=== PATIENT | male | born 1960 | race Caucasian/White ===

== ENCOUNTER 2021-04-29 02:06 | Inpatient (IN) | payer OTHER, MEDICAID ==
[~2021-04-29] VITALS: Ht 175.3 cm; Wt 120.2 kg
[2021-04-29] MEDS ORDERED: DEXTROSE (50%) 50ML SYRG IV ONE ×2 (02:30→02:45)
[2021-04-29] MEDS ORDERED: ACCU-CHEK COMFORT CURVE STRIP VI ONE ×2 (02:30→02:45)
[2021-04-29 02:45] LABS: Basophils # (auto) 0.1 10 ^3/uL (0-0.2); Basophils % (auto) 0.8 % (0.0-2.0); Eosinophils # (auto) 0 10 ^3/uL (0-0.8); Eosinophils % (auto) 0.4 % (0.0-7.0); Hematocrit 46.1 % (41.0-53.0); Lymphocytes # (auto) 1.5 10 ^3/uL (0.4-5.4); Lymphocytes % (auto) 13.8 % (10.0-50.0); Mean Corpuscular Hemoglobin 28.2 pg (28.0-32.0); Mean Corpuscular Hgb Conc. 32.6 g/dL (32.0-36.0); Mean Corpuscular Volume 86.4 fL (80.0-100.0); Monocytes # (auto) 0.8 10 ^3/uL (0-1.3); Monocytes % (auto) 7.5 % (0.0-12.0); Neutrophils # (auto) 8.6 10 ^3/uL (1.6-8.6); Neutrophils % (auto) 77.5 % (37.0-80.0); Nucleated Red Blood Cells % 0.1 %; Red Blood Cells 5.33 10^6/uL (4.5-5.90); Red Cell Distribution Width 15.2 % (11.8-14.3); White Blood Cell 11.2 10^3/uL (4.4-10.8)
[2021-04-29 02:51] LABS: Urine Bacteria NONE SEEN /hpf (None Seen); Urine WBC <1 /hpf (0 - 3)
[2021-04-29 02:53] LABS: Urine Blood TRACE /uL (Negative); Urine Specific Gravity 1.006 (1.001-1.035)
[2021-04-29 02:59] LABS: Albumin 3.7 g/dL (3.4-5.0); BUN/Creatinine Ratio 8.7; Calcium 9.2 mg/dL (8.5-10.1); Potassium 3.3 mmol/L (3.5-5.1)
[2021-04-29 03:10] LABS: Bilirubin, Total 0.3 mg/dL (0.2-1.0)
[2021-04-29] MEDS ORDERED: D5W/SOD CHL 0.45%/KCL 20MEQ 1,000 ML IV ONE (04:30)
[2021-04-29] MEDS ORDERED: NITROGLYCERIN 0.4 MG SL TAB SL PRN (06:30)
[2021-04-29] MEDS ORDERED: HYDROcodone-ACET 5/325MG TAB PO PRN (06:30)
[2021-04-29] MEDS ORDERED: SODIUM CHLORIDE 0.9% 1,000 ML IV SCH (06:30)
[2021-04-29] MEDS ORDERED: ONDANSETRON HCL 4 MG/2 ML VIAL IV PRN (06:30)
[2021-04-29] MEDS ORDERED: ACETAMINOPHEN 325 MG TAB PO PRN (06:30)
[2021-04-29] MEDS ORDERED: MORPHINE SULFATE INJECTION 2 MG/ML SYRG IV PRN (06:30)
[2021-04-29] MEDS ORDERED: DEXTROSE (50%) 50ML SYRG IV PRN (07:30)
[2021-04-29] MEDS ORDERED: hydrALAZINE HCL 20 MG/ML VL IV PRN (07:30)
[2021-04-29 09:30] VITALS: BP 177/90
[2021-04-29] MEDS ORDERED: LOSARTAN POTASSIUM 50 MG TAB PO SCH (10:00)
[2021-04-29] MEDS ORDERED: ENOXAPARIN SOD 40 MG/0.4 ML SYRINGE SC SCH (10:00)
[2021-04-29] MEDS ORDERED: NIFEdipine ER 30 MG TAB PO SCH (10:00)
[2021-04-29] MEDS ORDERED: INSU100I44 SC (10:49)
[2021-04-29] MEDS ORDERED: INSUINJ37 SC (10:49)
[2021-04-29] MEDS ORDERED: LOSA-39 PO (10:49)
[2021-04-29] MEDS ORDERED: InsuLIN REG 1unit/0.01ml Soln (100units/ml) SC SCH ×2 (11:30→22:00)
[2021-04-29] MEDS ORDERED: ACCU-CHEK COMFORT CURVE STRIP VI SCH (11:30)
== END 2021-04-29 11:21 | disposition left against medical advice (07) | DRG 637 ==
LOC: EDBD 02:06 → ER 02:06 → OVERFLOW 06:18
PROVIDERS: ADMIT Internal Medicine; ATTEND Internal Medicine
DX: E11.649 Type 2 diabetes mellitus with hypoglycemia without coma (principal); G93.41 Metabolic encephalopathy; I10 Essential (primary) hypertension; Z53.29 Procedure and treatment not carried out because of patient's decision for other reasons; D72.829 Elevated white blood cell count, unspecified; Z20.822 Contact with and (suspected) exposure to COVID-19; Z86.73 Personal history of transient ischemic attack (TIA), and cerebral infarction without residual deficits; Z91.14 Patient's other noncompliance with medication regimen
CPT/HCPCS: 36415; 70450; 71045; 80053; 81001; 82962; 84484; 85025; 87426; 93005; 96365; 96366; 96375; G0378

== ENCOUNTER 2021-06-17 22:23 | Inpatient (IN) | payer OTHER, MEDICAID ==
[~2021-06-17] VITALS: Ht 175.3 cm; Wt 82.0 kg
[~2021-06-17 22:23] MED LIST: INSU100I44 SC; INSUINJ37 SC; LOSA-39 PO
[2021-06-17] MEDS ORDERED: ROCURONIUM 10MG/ML 10ML VIAL IV ONE ×2 (22:34→22:45)
[2021-06-17] MEDS ORDERED: ETOMIDATE (2MG/ML) 20ML VIAL IV ONE ×2 (22:34→22:45)
[2021-06-17] MEDS: PROPOFOL 100 ML IV SCH (22:42)
[2021-06-17] MEDS ORDERED: SODIUM CHLORIDE 0.9% 1,000 ML IV ONE (22:45)
[2021-06-17] MEDS ORDERED: MIDAZOLAM HCL 5 MG/ML-1ML VIAL IV ONE (22:45)
[2021-06-17 22:55] LABS: Basophils # (auto) 0 10 ^3/uL (0-0.2); Basophils % (auto) 0.2 % (0.0-2.0); Eosinophils # (auto) 0 10 ^3/uL (0-0.8); Hematocrit 47.7 % (41.0-53.0); Hemoglobin 15.8 g/dL (13.5-17.5); Lymphocytes # (auto) 0.9 10 ^3/uL (0.4-5.4); Lymphocytes % (auto) 6.3 % (10.0-50.0); Mean Corpuscular Hemoglobin 28.3 pg (28.0-32.0); Mean Corpuscular Hgb Conc. 33.2 g/dL (32.0-36.0); Mean Corpuscular Volume 85.2 fL (80.0-100.0); Monocytes # (auto) 1.7 10 ^3/uL (0-1.3); Monocytes % (auto) 11.1 % (0.0-12.0); Neutrophils # (auto) 12.3 10 ^3/uL (1.6-8.6); Neutrophils % (auto) 82.4 % (37.0-80.0); Nucleated Red Blood Cells % 0.1 %; Red Cell Distribution Width 16.1 % (11.8-14.3); White Blood Cell 14.9 10^3/uL (4.4-10.8)
[2021-06-17] MEDS ORDERED: ACETAMINOPHEN 650 MG RECT SUPP PR ONE (23:00)
[2021-06-17 23:06] LABS: Urine Bacteria NONE SEEN /hpf (None Seen); Urine Blood 2+ /uL (Negative); Urine Hyaline Cast FEW /lpf (0 - 2); Urine Specific Gravity 1.023 (1.001-1.035); Urine WBC 1 /hpf (0 - 3)
[2021-06-17] MEDS ORDERED: PIPERACILLIN-TAZO 4.5GM 100 ML IV ONE (23:15)
[2021-06-17 23:16] LABS: Albumin 3.2 g/dL (3.4-5.0); BUN/Creatinine Ratio 18.3; Calcium 8.6 mg/dL (8.5-10.1); Potassium 4.1 mmol/L (3.5-5.1)
[2021-06-17 23:18] LABS: Bilirubin, Total 0.5 mg/dL (0.2-1.0); Total Protein 7.6 g/dL (6.4-8.2)
[2021-06-17] MEDS: VANCOMYCIN 1GM/250ML 250 ML IV ONE ×2 (23:21→23:31)
[2021-06-17] MEDS ORDERED: IOHEXOL 300 MG/ML 100ML BOTTLE IJ ONE (23:22)
[2021-06-17] MEDS ORDERED: fentaNYL Drip 2500mCg/250mlNS 250 ML IV ONE (23:44)
[2021-06-17] MEDS: fentaNYL Drip 2500mCg/250mlNS 250 ML IV SCH (23:50)
[2021-06-17] MEDS: MIDAZOLAM DRIP 50 mg/50mL 50 ML IV SCH (23:59)
[2021-06-18] VITALS (74 sets, daily range): BP systolic 94–193; BP diastolic 53–130
[2021-06-18] MEDS ORDERED: ROCURONIUM 10MG/ML 10ML VIAL IV ONE
[2021-06-18 00:25] LABS: Alcohol, Urine < 3.0 mg/dL (0-10); Amphetamine Screen, Urine POSITIVE (NEGATIVE); Barbiturate Scree,Urine NEGATIVE (NEGATIVE); Benzodiazephine Screen, Urine POSITIVE (NEGATIVE); Cannabinoid Screen, Urine NEGATIVE (NEGATIVE); Cocaine Screen, Urine NEGATIVE (NEGATIVE); Opiate Scree,Urine NEGATIVE (NEGATIVE); Phencyclidine Screen, Urine NEGATIVE (NEGATIVE)
[2021-06-18 01:18] LABS: INR 1.13 (0.9-1.15); Partial Thromboplastin Time 29.6 sec (23.6-33.0)
[2021-06-18] MEDS ORDERED: SODIUM CHLORIDE 0.9% 1,000 ML IV ONE (03:15)
[2021-06-18] MEDS ORDERED: ACETAMINOPHEN 650 MG RECT SUPP PR ONE (04:45)
[2021-06-18] MEDS ORDERED: ONDANSETRON HCL 4 MG/2 ML VIAL IV PRN (06:15)
[2021-06-18] MEDS ORDERED: ACETAMINOPHEN 325 MG TAB PO PRN (06:15)
[2021-06-18] MEDS ORDERED: NITROGLYCERIN 0.4 MG SL TAB SL PRN (06:15)
[2021-06-18] MEDS ORDERED: ALBUMIN 5% 250 ML IV ONE (06:15)
[2021-06-18] MEDS ORDERED: ALBUTEROL SULF 2.5 MG/0.5ML(0.5%) NEB SOLN NEB PRN (06:15)
[2021-06-18] MEDS ORDERED: MORPHINE SULFATE INJ 2 MG/ml SYRG IV PRN (06:15)
[2021-06-18] MEDS: SODIUM CHLORIDE 0.9% 1,000 ML IV SCH ×3 (06:33→18:50)
[2021-06-18] MEDS: ENOXAPARIN SOD 40 MG/0.4 ML SYRINGE SC SCH (09:19)
[2021-06-18] MEDS: PANTOPRAZOLE 40 MG/10 ML VIAL INJ IV SCH (09:20)
[2021-06-18] MEDS: cefTRIAXone 1GM/50ML D5W 50 ML IV SCH (09:20)
[2021-06-18] MEDS: ALBUTEROL SULF 2.5 MG/0.5ML(0.5%) NEB SOLN NEB SCH ×4 (11:07→22:15)
[2021-06-18] MEDS: InsuLIN REG 1unit/0.01ml Soln (100units/ml) SC SCH ×3 (12:00→23:55)
[2021-06-18] MEDS: ACCU-CHEK COMFORT CURVE STRIP VI SCH ×3 (12:14→23:56)
[2021-06-18] MEDS: MIDAZOLAM DRIP 50 mg/50mL 50 ML IV SCH ×2 (12:16→18:50)
[2021-06-18] MEDS: fentaNYL Drip 2500mCg/250mlNS 250 ML IV SCH ×2 (13:33→18:50)
[2021-06-18] MEDS: CLINDAMYCIN 600MG IV 50 ML IV SCH ×2 (13:38→22:21)
[2021-06-18] MEDS: IPRATROPIUM BROM 0.5 MG/2.5ML INH SOL NEB SCH ×2 (14:50→22:15)
[2021-06-18] MEDS: ACETYLCYSTEINE 20%(200MG/ML) SOL 4ML NEB SCH ×2 (14:51→22:15)
[2021-06-18] MEDS: PROPOFOL 100 ML IV SCH (22:45)
[2021-06-19] VITALS (102 sets, daily range): BP systolic 94–155; BP diastolic 54–81
[2021-06-19] MEDS: MIDAZOLAM DRIP 50 mg/50mL 50 ML IV SCH ×2 (01:50→09:15)
[2021-06-19] MEDS: ALBUTEROL SULF 2.5 MG/0.5ML(0.5%) NEB SOLN NEB SCH ×6 (02:17→22:08)
[2021-06-19 04:01] LABS: Basophils # (auto) 0.1 10 ^3/uL (0-0.2); Eosinophils # (auto) 0.2 10 ^3/uL (0-0.8); Eosinophils % (auto) 1.2 % (0.0-7.0); Hematocrit 40.4 % (41.0-53.0); Hemoglobin 13.1 g/dL (13.5-17.5); Lymphocytes # (auto) 2.6 10 ^3/uL (0.4-5.4); Lymphocytes % (auto) 21.4 % (10.0-50.0); Mean Corpuscular Hemoglobin 29.2 pg (28.0-32.0); Mean Corpuscular Hgb Conc. 32.3 g/dL (32.0-36.0); Mean Corpuscular Volume 90.2 fL (80.0-100.0); Monocytes # (auto) 1.3 10 ^3/uL (0-1.3); Monocytes % (auto) 11.1 % (0.0-12.0); Neutrophils # (auto) 7.9 10 ^3/uL (1.6-8.6); Neutrophils % (auto) 65.3 % (37.0-80.0); Nucleated Red Blood Cells % 0.2 %; Red Blood Cells 4.48 10^6/uL (4.5-5.90); Red Cell Distribution Width 15.9 % (11.8-14.3); White Blood Cell 12.1 10^3/uL (4.4-10.8)
[2021-06-19 04:16] LABS: Albumin 2.6 g/dL (3.4-5.0); Calcium 8.1 mg/dL (8.5-10.1); Potassium 4.2 mmol/L (3.5-5.1)
[2021-06-19 04:27] LABS: Bilirubin, Total 0.4 mg/dL (0.2-1.0); Total Protein 6.2 g/dL (6.4-8.2)
[2021-06-19] MEDS: DEXTROSE (50%) 50ML SYRG IV PRN (05:59)
[2021-06-19] MEDS: InsuLIN REG 1unit/0.01ml Soln (100units/ml) SC SCH ×4 (06:00→23:54)
[2021-06-19] MEDS: CLINDAMYCIN 600MG IV 50 ML IV SCH ×3 (06:17→21:47)
[2021-06-19] MEDS: ACCU-CHEK COMFORT CURVE STRIP VI SCH ×4 (06:18→23:54)
[2021-06-19] MEDS: IPRATROPIUM BROM 0.5 MG/2.5ML INH SOL NEB SCH ×3 (08:23→22:08)
[2021-06-19] MEDS: ACETYLCYSTEINE 20%(200MG/ML) SOL 4ML NEB SCH ×3 (08:24→22:08)
[2021-06-19] MEDS: ENOXAPARIN SOD 40 MG/0.4 ML SYRINGE SC SCH (09:15)
[2021-06-19] MEDS: cefTRIAXone 1GM/50ML D5W 50 ML IV SCH (09:15)
[2021-06-19] MEDS: PANTOPRAZOLE 40 MG/10 ML VIAL INJ IV SCH (09:15)
[2021-06-19] MEDS: SODIUM CHLORIDE 0.9% 1,000 ML IV SCH (13:54)
[2021-06-19] MEDS: fentaNYL Drip 2500mCg/250mlNS 250 ML IV SCH (15:49)
[2021-06-19] MEDS: PROPOFOL 100 ML IV SCH (22:45)
[2021-06-20] VITALS (67 sets, daily range): BP systolic 113–180; BP diastolic 60–92
[2021-06-20] MEDS: ALBUTEROL SULF 2.5 MG/0.5ML(0.5%) NEB SOLN NEB SCH ×7 (01:53→22:09)
[2021-06-20] MEDS: CLINDAMYCIN 600MG IV 50 ML IV SCH ×3 (05:39→21:17)
[2021-06-20] MEDS: SODIUM CHLORIDE 0.9% 1,000 ML IV SCH ×2 (05:39→17:05)
[2021-06-20] MEDS: ACCU-CHEK COMFORT CURVE STRIP VI SCH ×4 (05:40→23:59)
[2021-06-20] MEDS: InsuLIN REG 1unit/0.01ml Soln (100units/ml) SC SCH ×3 (06:00→17:21)
[2021-06-20] MEDS: ACETYLCYSTEINE 20%(200MG/ML) SOL 4ML NEB SCH ×4 (06:34→22:09)
[2021-06-20] MEDS: IPRATROPIUM BROM 0.5 MG/2.5ML INH SOL NEB SCH ×4 (06:34→22:09)
[2021-06-20] MEDS: ENOXAPARIN SOD 40 MG/0.4 ML SYRINGE SC SCH (09:26)
[2021-06-20] MEDS: cefTRIAXone 1GM/50ML D5W 50 ML IV SCH (09:26)
[2021-06-20] MEDS: PANTOPRAZOLE 40 MG/10 ML VIAL INJ IV SCH (09:26)
[2021-06-20] MEDS: PROPOFOL 100 ML IV SCH (22:12)
[2021-06-20] MEDS: MIDAZOLAM DRIP 50 mg/50mL 50 ML IV SCH (23:45)
[2021-06-20] MEDS: fentaNYL Drip 2500mCg/250mlNS 250 ML IV SCH (23:45)
[2021-06-21] VITALS (38 sets, daily range): BP systolic 120–193; BP diastolic 64–105
[2021-06-21] MEDS: InsuLIN REG 1unit/0.01ml Soln (100units/ml) SC SCH ×4 (00:01→18:02)
[2021-06-21 04:13] LABS: Basophils # (auto) 0 10 ^3/uL (0-0.2); Basophils % (auto) 0.6 % (0.0-2.0); Eosinophils # (auto) 0.1 10 ^3/uL (0-0.8); Eosinophils % (auto) 1.1 % (0.0-7.0); Hematocrit 39.7 % (41.0-53.0); Hemoglobin 13.2 g/dL (13.5-17.5); Lymphocytes # (auto) 1.4 10 ^3/uL (0.4-5.4); Mean Corpuscular Hemoglobin 29.2 pg (28.0-32.0); Mean Corpuscular Hgb Conc. 33.2 g/dL (32.0-36.0); Mean Corpuscular Volume 87.9 fL (80.0-100.0); Monocytes # (auto) 0.7 10 ^3/uL (0-1.3); Monocytes % (auto) 8.9 % (0.0-12.0); Neutrophils % (auto) 72.4 % (37.0-80.0); Nucleated Red Blood Cells % 0.1 %; Red Blood Cells 4.51 10^6/uL (4.5-5.90); Red Cell Distribution Width 15.2 % (11.8-14.3); White Blood Cell 8.3 10^3/uL (4.4-10.8)
[2021-06-21 04:20] LABS: Calcium 8.6 mg/dL (8.5-10.1); Potassium 4.2 mmol/L (3.5-5.1)
[2021-06-21] MEDS: SODIUM CHLORIDE 0.9% 1,000 ML IV SCH ×2 (05:06→17:47)
[2021-06-21] MEDS: ACCU-CHEK COMFORT CURVE STRIP VI SCH ×3 (05:09→17:58)
[2021-06-21] MEDS: CLINDAMYCIN 600MG IV 50 ML IV SCH ×3 (05:09→21:11)
[2021-06-21] MEDS: IPRATROPIUM BROM 0.5 MG/2.5ML INH SOL NEB SCH (06:12)
[2021-06-21] MEDS: ALBUTEROL SULF 2.5 MG/0.5ML(0.5%) NEB SOLN NEB SCH (06:12)
[2021-06-21] MEDS: ACETYLCYSTEINE 20%(200MG/ML) SOL 4ML NEB SCH (06:13)
[2021-06-21] MEDS: cefTRIAXone 1GM/50ML D5W 50 ML IV SCH (09:16)
[2021-06-21] MEDS: PANTOPRAZOLE 40 MG/10 ML VIAL INJ IV SCH (10:00)
[2021-06-21] MEDS: ENOXAPARIN SOD 40 MG/0.4 ML SYRINGE SC SCH (10:01)
[2021-06-21] MEDS ORDERED: amLODIPine BESYLATE 5 MG TAB GT SCH (13:45)
[2021-06-21] MEDS: hydrALAZINE HCL 20 MG/ML VL IV PRN ×2 (14:05→21:09)
[2021-06-21] MEDS ORDERED: amLODIPine BESYLATE 5 MG TAB GT ONE (14:15)
[2021-06-21] MEDS ORDERED: LORazepam 2MG/ML-1ML VIAL IV PRN (17:45)
[2021-06-21] MEDS: PROPOFOL 100 ML IV SCH (22:36)
[2021-06-21] MEDS: fentaNYL Drip 2500mCg/250mlNS 250 ML IV SCH (23:17)
[2021-06-21] MEDS: MIDAZOLAM DRIP 50 mg/50mL 50 ML IV SCH (23:17)
[2021-06-22] VITALS (37 sets, daily range): BP systolic 115–196; BP diastolic 53–97
[2021-06-22] MEDS: ACCU-CHEK COMFORT CURVE STRIP VI SCH ×4 (00:17→18:03)
[2021-06-22] MEDS: InsuLIN REG 1unit/0.01ml Soln (100units/ml) SC SCH ×4 (00:18→18:02)
[2021-06-22 04:24] LABS: Basophils # (auto) 0.1 10 ^3/uL (0-0.2); Basophils % (auto) 0.7 % (0.0-2.0); Eosinophils # (auto) 0.1 10 ^3/uL (0-0.8); Eosinophils % (auto) 0.7 % (0.0-7.0); Hematocrit 40.6 % (41.0-53.0); Hemoglobin 13.4 g/dL (13.5-17.5); Lymphocytes # (auto) 1.4 10 ^3/uL (0.4-5.4); Lymphocytes % (auto) 18.6 % (10.0-50.0); Mean Corpuscular Hemoglobin 28.7 pg (28.0-32.0); Mean Corpuscular Volume 86.9 fL (80.0-100.0); Monocytes # (auto) 0.8 10 ^3/uL (0-1.3); Monocytes % (auto) 10.4 % (0.0-12.0); Neutrophils # (auto) 5.4 10 ^3/uL (1.6-8.6); Neutrophils % (auto) 69.6 % (37.0-80.0); Red Blood Cells 4.68 10^6/uL (4.5-5.90); Red Cell Distribution Width 15.8 % (11.8-14.3); White Blood Cell 7.7 10^3/uL (4.4-10.8)
[2021-06-22 04:40] LABS: BUN/Creatinine Ratio 30.3; Calcium 8.9 mg/dL (8.5-10.1); Potassium 3.9 mmol/L (3.5-5.1)
[2021-06-22] MEDS: SODIUM CHLORIDE 0.9% 1,000 ML IV SCH ×2 (04:47→16:09)
[2021-06-22] MEDS: CLINDAMYCIN 600MG IV 50 ML IV SCH ×3 (05:26→21:51)
[2021-06-22] MEDS: cefTRIAXone 1GM/50ML D5W 50 ML IV SCH (09:19)
[2021-06-22] MEDS: ENOXAPARIN SOD 40 MG/0.4 ML SYRINGE SC SCH (09:57)
[2021-06-22] MEDS: amLODIPine BESYLATE 5 MG TAB GT SCH (09:57)
[2021-06-22] MEDS: PANTOPRAZOLE 40 MG/10 ML VIAL INJ IV SCH (09:57)
[2021-06-22] MEDS: hydrALAZINE HCL 20 MG/ML VL IV PRN (20:38)
[2021-06-22] MEDS: PROPOFOL 100 ML IV SCH (21:11)
[2021-06-22] MEDS: fentaNYL Drip 2500mCg/250mlNS 250 ML IV SCH (21:12)
[2021-06-22] MEDS: MIDAZOLAM DRIP 50 mg/50mL 50 ML IV SCH (21:12)
[2021-06-22] MEDS ORDERED: GLYCOPYRROLATE 0.2 MG/ML 1ML VIAL IV ONE (21:45)
[2021-06-23] VITALS (36 sets, daily range): BP systolic 122–178; BP diastolic 60–90
[2021-06-23] MEDS: InsuLIN REG 1unit/0.01ml Soln (100units/ml) SC SCH ×5 (00:39→23:33)
[2021-06-23] MEDS: ACCU-CHEK COMFORT CURVE STRIP VI SCH ×5 (00:40→23:31)
[2021-06-23] MEDS: SODIUM CHLORIDE 0.9% 1,000 ML IV SCH ×2 (00:40→09:41)
[2021-06-23] MEDS ORDERED: PHENYTOIN SODIUM 50 MG/ML 2ML VIAL IV SCH (03:00)
[2021-06-23 04:38] LABS: Basophils # (auto) 0.1 10 ^3/uL (0-0.2); Basophils % (auto) 0.6 % (0.0-2.0); Eosinophils # (auto) 0.1 10 ^3/uL (0-0.8); Eosinophils % (auto) 0.7 % (0.0-7.0); Hematocrit 40.8 % (41.0-53.0); Hemoglobin 13.5 g/dL (13.5-17.5); Lymphocytes # (auto) 1.7 10 ^3/uL (0.4-5.4); Lymphocytes % (auto) 18.1 % (10.0-50.0); Mean Corpuscular Hgb Conc. 33.2 g/dL (32.0-36.0); Mean Corpuscular Volume 87.5 fL (80.0-100.0); Monocytes # (auto) 0.9 10 ^3/uL (0-1.3); Monocytes % (auto) 9.9 % (0.0-12.0); Neutrophils # (auto) 6.5 10 ^3/uL (1.6-8.6); Neutrophils % (auto) 70.7 % (37.0-80.0); Nucleated Red Blood Cells % 0.1 %; Red Blood Cells 4.66 10^6/uL (4.5-5.90); Red Cell Distribution Width 16.1 % (11.8-14.3); White Blood Cell 9.2 10^3/uL (4.4-10.8)
[2021-06-23 04:59] LABS: Potassium 4.3 mmol/L (3.5-5.1)
[2021-06-23] MEDS: CLINDAMYCIN 600MG IV 50 ML IV SCH ×3 (05:33→22:26)
[2021-06-23] MEDS: cefTRIAXone 1GM/50ML D5W 50 ML IV SCH (09:39)
[2021-06-23] MEDS: PANTOPRAZOLE 40 MG/10 ML VIAL INJ IV SCH (09:40)
[2021-06-23] MEDS: ENOXAPARIN SOD 40 MG/0.4 ML SYRINGE SC SCH (09:40)
[2021-06-23] MEDS: amLODIPine BESYLATE 5 MG TAB GT SCH (09:41)
[2021-06-23] MEDS: D5W/SOD CHLO 0.9% 1,000 ML IV SCH (11:19)
[2021-06-23] MEDS: Glucerna 1.2 Cal 1Liter BOTTLE GT SCH (13:44)
[2021-06-23] MEDS: hydrALAZINE HCL 20 MG/ML VL IV PRN (18:13)
[2021-06-23] MEDS ORDERED: PHENYTOIN IV DILANTIN 1,000 MG in SODIUM CHL 0.9% 250 ML IV ONE (19:00)
[2021-06-23] MEDS: PROPOFOL 100 ML IV SCH (22:45)
[2021-06-23] MEDS: fentaNYL Drip 2500mCg/250mlNS 250 ML IV SCH (23:41)
[2021-06-23] MEDS: MIDAZOLAM DRIP 50 mg/50mL 50 ML IV SCH (23:45)
[2021-06-24] VITALS (52 sets, daily range): BP systolic 131–186; BP diastolic 67–97
[2021-06-24] MEDS: D5W/SOD CHLO 0.9% 1,000 ML IV SCH (02:08)
[2021-06-24] MEDS: PHENYTOIN SODIUM 50 MG/ML 2ML VIAL IV SCH ×3 (03:16→18:16)
[2021-06-24 03:53] LABS: Basophils # (auto) 0.1 10 ^3/uL (0-0.2); Basophils % (auto) 1.1 % (0.0-2.0); Eosinophils # (auto) 0.1 10 ^3/uL (0-0.8); Hematocrit 41.3 % (41.0-53.0); Hemoglobin 13.6 g/dL (13.5-17.5); Lymphocytes % (auto) 19.6 % (10.0-50.0); Mean Corpuscular Hgb Conc. 32.9 g/dL (32.0-36.0); Monocytes # (auto) 0.9 10 ^3/uL (0-1.3); Monocytes % (auto) 8.5 % (0.0-12.0); Neutrophils # (auto) 7.2 10 ^3/uL (1.6-8.6); Neutrophils % (auto) 69.8 % (37.0-80.0); Nucleated Red Blood Cells % 0.1 %; Red Blood Cells 4.69 10^6/uL (4.5-5.90); Red Cell Distribution Width 15.9 % (11.8-14.3); White Blood Cell 10.3 10^3/uL (4.4-10.8)
[2021-06-24 04:08] LABS: BUN/Creatinine Ratio 22.1; Calcium 8.8 mg/dL (8.5-10.1)
[2021-06-24] MEDS: InsuLIN REG 1unit/0.01ml Soln (100units/ml) SC SCH ×3 (05:12→17:41)
[2021-06-24] MEDS: ACCU-CHEK COMFORT CURVE STRIP VI SCH ×3 (05:12→17:39)
[2021-06-24] MEDS: CLINDAMYCIN 600MG IV 50 ML IV SCH ×3 (05:21→22:34)
[2021-06-24] MEDS: hydrALAZINE HCL 20 MG/ML VL IV PRN ×3 (06:17→20:48)
[2021-06-24] MEDS: cefTRIAXone 1GM/50ML D5W 50 ML IV SCH (09:18)
[2021-06-24] MEDS: D5W 5% 1,000 ML IV SCH ×2 (09:30→20:47)
[2021-06-24] MEDS: LOSARTAN POTASSIUM 50 MG TAB PO SCH (11:01)
[2021-06-24] MEDS: PANTOPRAZOLE 40 MG/10 ML VIAL INJ IV SCH (11:02)
[2021-06-24] MEDS: ENOXAPARIN SOD 40 MG/0.4 ML SYRINGE SC SCH (11:02)
[2021-06-24] MEDS: amLODIPine BESYLATE 5 MG TAB GT SCH (11:02)
[2021-06-24] MEDS: PROPOFOL 100 ML IV SCH (22:35)
[2021-06-24] MEDS: MIDAZOLAM DRIP 50 mg/50mL 50 ML IV SCH (23:45)
[2021-06-24] MEDS: fentaNYL Drip 2500mCg/250mlNS 250 ML IV SCH (23:45)
[2021-06-25] VITALS (40 sets, daily range): BP systolic 129–196; BP diastolic 65–101
[2021-06-25] MEDS: ACCU-CHEK COMFORT CURVE STRIP VI SCH ×5 (00:10→23:32)
[2021-06-25] MEDS: InsuLIN REG 1unit/0.01ml Soln (100units/ml) SC SCH ×5 (00:11→23:33)
[2021-06-25] MEDS: PHENYTOIN SODIUM 50 MG/ML 2ML VIAL IV SCH ×3 (03:40→20:40)
[2021-06-25 04:25] LABS: BUN/Creatinine Ratio 17.7; Calcium 8.9 mg/dL (8.5-10.1); Potassium 4.1 mmol/L (3.5-5.1)
[2021-06-25] MEDS: hydrALAZINE HCL 20 MG/ML VL IV PRN ×2 (04:38→20:23)
[2021-06-25] MEDS: D5W 5% 1,000 ML IV SCH ×3 (05:30→23:18)
[2021-06-25] MEDS: CLINDAMYCIN 600MG IV 50 ML IV SCH ×3 (06:04→22:00)
[2021-06-25 10:22] LABS: Basophils # (auto) 0.1 10 ^3/uL (0-0.2); Basophils % (auto) 0.8 % (0.0-2.0); Eosinophils # (auto) 0.1 10 ^3/uL (0-0.8); Eosinophils % (auto) 1.2 % (0.0-7.0); Hematocrit 45.9 % (41.0-53.0); Hemoglobin 14.9 g/dL (13.5-17.5); Lymphocytes % (auto) 18.9 % (10.0-50.0); Mean Corpuscular Hemoglobin 28.7 pg (28.0-32.0); Mean Corpuscular Hgb Conc. 32.5 g/dL (32.0-36.0); Mean Corpuscular Volume 88.2 fL (80.0-100.0); Monocytes # (auto) 0.9 10 ^3/uL (0-1.3); Monocytes % (auto) 8.8 % (0.0-12.0); Neutrophils # (auto) 7.3 10 ^3/uL (1.6-8.6); Neutrophils % (auto) 70.3 % (37.0-80.0); Nucleated Red Blood Cells % 0.1 %; Red Cell Distribution Width 16.4 % (11.8-14.3); White Blood Cell 10.4 10^3/uL (4.4-10.8)
[2021-06-25] MEDS: cefTRIAXone 1GM/50ML D5W 50 ML IV SCH (11:29)
[2021-06-25] MEDS: PANTOPRAZOLE 40 MG/10 ML VIAL INJ IV SCH (11:30)
[2021-06-25] MEDS: amLODIPine BESYLATE 5 MG TAB GT SCH (11:30)
[2021-06-25] MEDS: LOSARTAN POTASSIUM 50 MG TAB PO SCH (11:30)
[2021-06-25] MEDS: ENOXAPARIN SOD 40 MG/0.4 ML SYRINGE SC SCH (11:31)
[2021-06-25] MEDS: PROPOFOL 100 ML IV SCH (22:45)
[2021-06-25] MEDS: fentaNYL Drip 2500mCg/250mlNS 250 ML IV SCH (23:45)
[2021-06-25] MEDS: MIDAZOLAM DRIP 50 mg/50mL 50 ML IV SCH (23:45)
[2021-06-26] VITALS (32 sets, daily range): BP systolic 137–175; BP diastolic 76–90
[2021-06-26] MEDS: PHENYTOIN SODIUM 50 MG/ML 2ML VIAL IV SCH ×3 (03:28→19:27)
[2021-06-26] MEDS: Glucerna 1.2 Cal 1Liter BOTTLE GT SCH ×2 (03:49→23:25)
[2021-06-26 04:13] LABS: Basophils # (auto) 0.1 10 ^3/uL (0-0.2); Basophils % (auto) 0.5 % (0.0-2.0); Eosinophils # (auto) 0.2 10 ^3/uL (0-0.8); Eosinophils % (auto) 1.4 % (0.0-7.0); Hemoglobin 14.1 g/dL (13.5-17.5); Lymphocytes # (auto) 2.1 10 ^3/uL (0.4-5.4); Lymphocytes % (auto) 18.6 % (10.0-50.0); Mean Corpuscular Hemoglobin 28.8 pg (28.0-32.0); Mean Corpuscular Hgb Conc. 32.7 g/dL (32.0-36.0); Monocytes # (auto) 1.1 10 ^3/uL (0-1.3); Neutrophils # (auto) 7.9 10 ^3/uL (1.6-8.6); Neutrophils % (auto) 69.5 % (37.0-80.0); Nucleated Red Blood Cells % 0.1 %; Red Blood Cells 4.89 10^6/uL (4.5-5.90); Red Cell Distribution Width 16.3 % (11.8-14.3); White Blood Cell 11.3 10^3/uL (4.4-10.8)
[2021-06-26 04:58] LABS: BUN/Creatinine Ratio 20.2; Calcium 8.9 mg/dL (8.5-10.1)
[2021-06-26 05:10] LABS: Potassium 4.4 mmol/L (3.5-5.1)
[2021-06-26] MEDS: CLINDAMYCIN 600MG IV 50 ML IV SCH ×3 (05:28→21:27)
[2021-06-26] MEDS: ACCU-CHEK COMFORT CURVE STRIP VI SCH ×4 (05:33→23:27)
[2021-06-26] MEDS: InsuLIN REG 1unit/0.01ml Soln (100units/ml) SC SCH ×4 (05:36→23:28)
[2021-06-26] MEDS: cefTRIAXone 1GM/50ML D5W 50 ML IV SCH (10:28)
[2021-06-26] MEDS: PANTOPRAZOLE 40 MG/10 ML VIAL INJ IV SCH (10:28)
[2021-06-26] MEDS: LOSARTAN POTASSIUM 50 MG TAB PO SCH (10:34)
[2021-06-26] MEDS: amLODIPine BESYLATE 5 MG TAB GT SCH (10:34)
[2021-06-26] MEDS: ENOXAPARIN SOD 40 MG/0.4 ML SYRINGE SC SCH (10:35)
[2021-06-26] MEDS: hydrALAZINE HCL 20 MG/ML VL IV PRN (13:30)
[2021-06-26] MEDS: fentaNYL Drip 2500mCg/250mlNS 250 ML IV SCH (23:45)
[2021-06-27] VITALS (39 sets, daily range): BP systolic 131–193; BP diastolic 71–99
[2021-06-27] MEDS: PHENYTOIN SODIUM 50 MG/ML 2ML VIAL IV SCH ×3 (03:11→19:01)
[2021-06-27 04:47] LABS: Anion Gap 8 (5-15); Blood Urea Nitrogen 21 mg/dL (7-18); Calcium 8.4 mg/dL (8.5-10.1); Carbon Dioxide 27 mmol/L (21-32); Chloride 105 mmol/L (98-107); Glucose 263 mg/dL (74-106); Potassium 4.7 mmol/L (3.5-5.1); Sodium 140 mmol/L (136-145)
[2021-06-27 04:49] LABS: BUN/Creatinine Ratio 22.8; GFR African American 108 mL/min; GFR Non-African American 89 mL/min
[2021-06-27] MEDS: CLINDAMYCIN 600MG IV 50 ML IV SCH ×3 (05:45→21:32)
[2021-06-27] MEDS: InsuLIN REG 1unit/0.01ml Soln (100units/ml) SC SCH ×4 (05:45→23:34)
[2021-06-27] MEDS: ACCU-CHEK COMFORT CURVE STRIP VI SCH ×4 (05:46→23:33)
[2021-06-27 07:21] LABS: Basophils # (auto) 0 10 ^3/uL (0-0.2); Basophils % (auto) 0.4 % (0.0-2.0); Eosinophils # (auto) 0.1 10 ^3/uL (0-0.8); Eosinophils % (auto) 1.4 % (0.0-7.0); Hematocrit 42.3 % (41.0-53.0); Hemoglobin 14.4 g/dL (13.5-17.5); Lymphocytes # (auto) 2.4 10 ^3/uL (0.4-5.4); Lymphocytes % (auto) 24.8 % (10.0-50.0); Mean Corpuscular Hemoglobin 29.8 pg (28.0-32.0); Mean Corpuscular Hgb Conc. 34.2 g/dL (32.0-36.0); Mean Corpuscular Volume 87.2 fL (80.0-100.0); Monocytes # (auto) 0.8 10 ^3/uL (0-1.3); Monocytes % (auto) 8.3 % (0.0-12.0); Neutrophils # (auto) 6.3 10 ^3/uL (1.6-8.6); Neutrophils % (auto) 65.1 % (37.0-80.0); Nucleated Red Blood Cells % 0.1 %; Red Blood Cells 4.85 10^6/uL (4.5-5.90); Red Cell Distribution Width 15.9 % (11.8-14.3); White Blood Cell 9.7 10^3/uL (4.4-10.8)
[2021-06-27] MEDS: PROPOFOL 100 ML IV SCH (07:33)
[2021-06-27] MEDS: MIDAZOLAM DRIP 50 mg/50mL 50 ML IV SCH (07:34)
[2021-06-27] MEDS: cefTRIAXone 1GM/50ML D5W 50 ML IV SCH (08:55)
[2021-06-27] MEDS: LOSARTAN POTASSIUM 50 MG TAB PO SCH (09:03)
[2021-06-27] MEDS: ENOXAPARIN SOD 40 MG/0.4 ML SYRINGE SC SCH (09:04)
[2021-06-27] MEDS: PANTOPRAZOLE 40 MG/10 ML VIAL INJ IV SCH (09:04)
[2021-06-27] MEDS: amLODIPine BESYLATE 5 MG TAB GT SCH (09:04)
[2021-06-27] MEDS: hydrALAZINE HCL 20 MG/ML VL IV PRN (11:17)
[2021-06-27] MEDS ORDERED: cloNIDine HCL 0.1 MG TAB PO PRN (15:45)
[2021-06-28] VITALS (35 sets, daily range): BP systolic 124–163; BP diastolic 64–92
[2021-06-28] MEDS: PHENYTOIN SODIUM 50 MG/ML 2ML VIAL IV SCH ×3 (03:12→18:29)
[2021-06-28 04:40] LABS: Basophils # (auto) 0.1 10 ^3/uL (0-0.2); Basophils % (auto) 0.7 % (0.0-2.0); Eosinophils # (auto) 0.1 10 ^3/uL (0-0.8); Eosinophils % (auto) 1.2 % (0.0-7.0); Hematocrit 42.3 % (41.0-53.0); Lymphocytes # (auto) 2.1 10 ^3/uL (0.4-5.4); Lymphocytes % (auto) 25.9 % (10.0-50.0); Mean Corpuscular Hemoglobin 28.9 pg (28.0-32.0); Mean Corpuscular Volume 87.7 fL (80.0-100.0); Monocytes # (auto) 0.7 10 ^3/uL (0-1.3); Monocytes % (auto) 8.7 % (0.0-12.0); Neutrophils # (auto) 5.2 10 ^3/uL (1.6-8.6); Neutrophils % (auto) 63.5 % (37.0-80.0); Nucleated Red Blood Cells % 0.1 %; Red Blood Cells 4.83 10^6/uL (4.5-5.90); Red Cell Distribution Width 16.2 % (11.8-14.3); White Blood Cell 8.3 10^3/uL (4.4-10.8)
[2021-06-28 04:59] LABS: BUN/Creatinine Ratio 23.2; Calcium 8.9 mg/dL (8.5-10.1); Potassium 4.3 mmol/L (3.5-5.1)
[2021-06-28] MEDS: CLINDAMYCIN 600MG IV 50 ML IV SCH ×3 (05:40→22:01)
[2021-06-28] MEDS: ACCU-CHEK COMFORT CURVE STRIP VI SCH ×3 (05:41→17:51)
[2021-06-28] MEDS: InsuLIN REG 1unit/0.01ml Soln (100units/ml) SC SCH ×3 (05:42→17:52)
[2021-06-28] MEDS: PROPOFOL 100 ML IV SCH ×2 (08:22→22:45)
[2021-06-28] MEDS: fentaNYL Drip 2500mCg/250mlNS 250 ML IV SCH ×2 (08:23→23:45)
[2021-06-28] MEDS: MIDAZOLAM DRIP 50 mg/50mL 50 ML IV SCH ×2 (08:23→23:45)
[2021-06-28] MEDS: cefTRIAXone 1GM/50ML D5W 50 ML IV SCH (09:29)
[2021-06-28] MEDS: PANTOPRAZOLE 40 MG/10 ML VIAL INJ IV SCH (09:29)
[2021-06-28] MEDS: ENOXAPARIN SOD 40 MG/0.4 ML SYRINGE SC SCH (09:29)
[2021-06-28] MEDS: LOSARTAN POTASSIUM 50 MG TAB PO SCH (09:30)
[2021-06-28] MEDS: amLODIPine BESYLATE 5 MG TAB GT SCH (09:30)
[2021-06-28] MEDS: INSULIN LANTUS (GLARGINE) 1 /0.01ml (100units/ml) SC SCH (22:07)
[2021-06-29] VITALS (35 sets, daily range): BP systolic 135–172; BP diastolic 70–95
[2021-06-29] MEDS: ACCU-CHEK COMFORT CURVE STRIP VI SCH ×5 (00:16→23:52)
[2021-06-29] MEDS: InsuLIN REG 1unit/0.01ml Soln (100units/ml) SC SCH ×5 (00:16→23:55)
[2021-06-29] MEDS: PHENYTOIN SODIUM 50 MG/ML 2ML VIAL IV SCH ×3 (03:00→19:35)
[2021-06-29 04:31] LABS: Basophils # (auto) 0.1 10 ^3/uL (0-0.2); Basophils % (auto) 0.7 % (0.0-2.0); Eosinophils # (auto) 0.1 10 ^3/uL (0-0.8); Eosinophils % (auto) 1.4 % (0.0-7.0); Hematocrit 39.8 % (41.0-53.0); Hemoglobin 13.2 g/dL (13.5-17.5); Lymphocytes # (auto) 2.2 10 ^3/uL (0.4-5.4); Lymphocytes % (auto) 24.4 % (10.0-50.0); Mean Corpuscular Hemoglobin 28.7 pg (28.0-32.0); Mean Corpuscular Hgb Conc. 33.3 g/dL (32.0-36.0); Mean Corpuscular Volume 86.2 fL (80.0-100.0); Monocytes # (auto) 0.7 10 ^3/uL (0-1.3); Monocytes % (auto) 7.8 % (0.0-12.0); Neutrophils # (auto) 5.8 10 ^3/uL (1.6-8.6); Neutrophils % (auto) 65.7 % (37.0-80.0); Red Blood Cells 4.61 10^6/uL (4.5-5.90); Red Cell Distribution Width 15.7 % (11.8-14.3); White Blood Cell 8.8 10^3/uL (4.4-10.8)
[2021-06-29 04:52] LABS: BUN/Creatinine Ratio 23.6; Calcium 8.6 mg/dL (8.5-10.1)
[2021-06-29] MEDS: CLINDAMYCIN 600MG IV 50 ML IV SCH (05:43)
[2021-06-29] MEDS: PANTOPRAZOLE 40 MG/10 ML VIAL INJ IV SCH (09:32)
[2021-06-29] MEDS: cefTRIAXone 1GM/50ML D5W 50 ML IV SCH (09:33)
[2021-06-29] MEDS: amLODIPine BESYLATE 5 MG TAB GT SCH (09:33)
[2021-06-29] MEDS: ENOXAPARIN SOD 40 MG/0.4 ML SYRINGE SC SCH (09:33)
[2021-06-29] MEDS: LOSARTAN POTASSIUM 50 MG TAB PO SCH (09:34)
[2021-06-29] MEDS: PROPOFOL 100 ML IV SCH (21:28)
[2021-06-29] MEDS: INSULIN LANTUS (GLARGINE) 1 /0.01ml (100units/ml) SC SCH (21:28)
[2021-06-29] MEDS: MIDAZOLAM DRIP 50 mg/50mL 50 ML IV SCH (21:29)
[2021-06-30] VITALS (35 sets, daily range): BP systolic 131–175; BP diastolic 71–95
[2021-06-30] MEDS: PHENYTOIN SODIUM 50 MG/ML 2ML VIAL IV SCH ×3 (03:00→19:46)
[2021-06-30] MEDS: ACCU-CHEK COMFORT CURVE STRIP VI SCH ×3 (05:41→18:16)
[2021-06-30] MEDS: InsuLIN REG 1unit/0.01ml Soln (100units/ml) SC SCH ×3 (05:42→18:26)
[2021-06-30] MEDS ORDERED: PHENYTOIN IV DILANTIN 500 MG in SODIUM CHL 0.9% 100 ML IV ONE (08:45)
[2021-06-30] MEDS: cefTRIAXone 1GM/50ML D5W 50 ML IV SCH (09:12)
[2021-06-30] MEDS: PANTOPRAZOLE 40 MG/10 ML VIAL INJ IV SCH (09:12)
[2021-06-30] MEDS: LOSARTAN POTASSIUM 50 MG TAB PO SCH (09:13)
[2021-06-30] MEDS: amLODIPine BESYLATE 5 MG TAB GT SCH (09:13)
[2021-06-30] MEDS: hydrALAZINE HCL 20 MG/ML VL IV PRN (18:29)
[2021-06-30] MEDS: INSULIN LANTUS (GLARGINE) 1 /0.01ml (100units/ml) SC SCH (22:21)
[2021-06-30] MEDS: PROPOFOL 100 ML IV SCH (22:45)
[2021-06-30] MEDS: MIDAZOLAM DRIP 50 mg/50mL 50 ML IV SCH (22:51)
[2021-07-01] VITALS (36 sets, daily range): BP systolic 126–147; BP diastolic 66–86
[2021-07-01] MEDS: ACCU-CHEK COMFORT CURVE STRIP VI SCH ×4 (00:29→17:37)
[2021-07-01] MEDS: InsuLIN REG 1unit/0.01ml Soln (100units/ml) SC SCH ×4 (00:31→18:03)
[2021-07-01 02:08] LABS: Urine Amorphous Crystal FEW /hpf (None Seen); Urine Bacteria NONE SEEN /hpf (None Seen); Urine Blood 2+ /uL (Negative); Urine Mucus FEW (None Seen); Urine Specific Gravity 1.019 (1.001-1.035); Urine WBC 5 /hpf (0 - 3)
[2021-07-01] MEDS: PHENYTOIN SODIUM 50 MG/ML 2ML VIAL IV SCH ×3 (03:21→18:30)
[2021-07-01] MEDS: cefTRIAXone 1GM/50ML D5W 50 ML IV SCH (09:14)
[2021-07-01] MEDS: PANTOPRAZOLE 40 MG/10 ML VIAL INJ IV SCH (09:29)
[2021-07-01] MEDS: LOSARTAN POTASSIUM 50 MG TAB PO SCH (09:29)
[2021-07-01] MEDS: amLODIPine BESYLATE 5 MG TAB GT SCH (09:30)
[2021-07-01] MEDS ORDERED: SODIUM CHL 0.9% IV ONE (21:00)
[2021-07-01] MEDS ORDERED: PHENYTOIN DILANTIN IV ONE (21:00)
[2021-07-01] MEDS: INSULIN LANTUS (GLARGINE) 1 /0.01ml (100units/ml) SC SCH (21:20)
[2021-07-01] MEDS: PROPOFOL 100 ML IV SCH (22:45)
[2021-07-01] MEDS: MIDAZOLAM DRIP 50 mg/50mL 50 ML IV SCH (23:02)
[2021-07-02] VITALS (33 sets, daily range): BP systolic 123–175; BP diastolic 74–97
[2021-07-02] MEDS: ACCU-CHEK COMFORT CURVE STRIP VI SCH ×5 (00:24→23:24)
[2021-07-02] MEDS: InsuLIN REG 1unit/0.01ml Soln (100units/ml) SC SCH ×5 (00:26→23:25)
[2021-07-02] MEDS: PHENYTOIN SODIUM 50 MG/ML 2ML VIAL IV SCH ×3 (03:00→18:06)
[2021-07-02 04:22] LABS: Basophils # (auto) 0.1 10 ^3/uL (0-0.2); Basophils % (auto) 0.7 % (0.0-2.0); Eosinophils # (auto) 0.1 10 ^3/uL (0-0.8); Eosinophils % (auto) 0.8 % (0.0-7.0); Hematocrit 41.8 % (41.0-53.0); Hemoglobin 13.8 g/dL (13.5-17.5); Lymphocytes # (auto) 1.5 10 ^3/uL (0.4-5.4); Lymphocytes % (auto) 13.1 % (10.0-50.0); Mean Corpuscular Hemoglobin 28.3 pg (28.0-32.0); Mean Corpuscular Volume 85.8 fL (80.0-100.0); Monocytes % (auto) 8.7 % (0.0-12.0); Neutrophils # (auto) 8.9 10 ^3/uL (1.6-8.6); Neutrophils % (auto) 76.7 % (37.0-80.0); Red Blood Cells 4.87 10^6/uL (4.5-5.90); White Blood Cell 11.6 10^3/uL (4.4-10.8)
[2021-07-02 04:40] LABS: INR 1.01 (0.9-1.15); Partial Thromboplastin Time 26.4 sec (23.6-33.0)
[2021-07-02 04:43] LABS: BUN/Creatinine Ratio 25.6; Calcium 8.9 mg/dL (8.5-10.1); Potassium 4.1 mmol/L (3.5-5.1)
[2021-07-02] MEDS: Glucerna 1.2 Cal 1Liter BOTTLE GT SCH (05:37)
[2021-07-02] MEDS: cefTRIAXone 1GM/50ML D5W 50 ML IV SCH (09:26)
[2021-07-02] MEDS: amLODIPine BESYLATE 5 MG TAB GT SCH (09:51)
[2021-07-02] MEDS: PANTOPRAZOLE 40 MG/10 ML VIAL INJ IV SCH (09:51)
[2021-07-02] MEDS: LOSARTAN POTASSIUM 50 MG TAB PO SCH (09:52)
[2021-07-02] MEDS: INSULIN LANTUS (GLARGINE) 1 /0.01ml (100units/ml) SC SCH (21:56)
[2021-07-02] MEDS: PROPOFOL 100 ML IV SCH (21:57)
[2021-07-02] MEDS: MIDAZOLAM DRIP 50 mg/50mL 50 ML IV SCH (21:57)
[2021-07-03] VITALS (46 sets, daily range): BP systolic 96–190; BP diastolic 68–115
[2021-07-03] MEDS: PHENYTOIN SODIUM 50 MG/ML 2ML VIAL IV SCH ×3 (02:13→18:48)
[2021-07-03] MEDS: ACCU-CHEK COMFORT CURVE STRIP VI SCH ×4 (05:45→23:59)
[2021-07-03] MEDS: InsuLIN REG 1unit/0.01ml Soln (100units/ml) SC SCH ×3 (05:47→17:50)
[2021-07-03] MEDS: cefTRIAXone 1GM/50ML D5W 50 ML IV SCH (09:21)
[2021-07-03] MEDS: amLODIPine BESYLATE 5 MG TAB GT SCH (09:22)
[2021-07-03] MEDS: PANTOPRAZOLE 40 MG/10 ML VIAL INJ IV SCH (09:22)
[2021-07-03] MEDS: LOSARTAN POTASSIUM 50 MG TAB PO SCH (09:22)
[2021-07-03] MEDS: PROPOFOL 100 ML IV SCH ×2 (19:00→22:36)
[2021-07-03] MEDS ORDERED: MIDAZOLAM HCL 2MG/2ML 2ml VIAL (1mg/ml) IV PRN (19:15)
[2021-07-03] MEDS ORDERED: fentaNYL CITRATE 100 MCG/2 ML VL ONE (19:32)
[2021-07-03] MEDS ORDERED: ETOMIDATE (2MG/ML) 20ML VIAL IV ONE ×2 (19:37→19:45)
[2021-07-03] MEDS ORDERED: SUCCINYLCHOLINE CHLORIDE 20 MG/ML 10ML VIAL IV ONE ×2 (19:37→19:45)
[2021-07-03] MEDS ORDERED: fentaNYL CITRATE 100 MCG/2 ML VL IV ONE (19:45)
[2021-07-03] MEDS: INSULIN LANTUS (GLARGINE) 1 /0.01ml (100units/ml) SC SCH (21:28)
[2021-07-04] VITALS (86 sets, daily range): BP systolic 78–170; BP diastolic 34–104
[2021-07-04] MEDS: PROPOFOL 100 ML IV SCH ×2 (02:22→07:00)
[2021-07-04] MEDS: PHENYTOIN SODIUM 50 MG/ML 2ML VIAL IV SCH ×3 (03:07→18:36)
[2021-07-04] MEDS: ACCU-CHEK COMFORT CURVE STRIP VI SCH ×3 (05:43→17:43)
[2021-07-04] MEDS: InsuLIN REG 1unit/0.01ml Soln (100units/ml) SC SCH ×4 (05:44→17:48)
[2021-07-04] MEDS: cefTRIAXone 1GM/50ML D5W 50 ML IV SCH (10:25)
[2021-07-04] MEDS: LOSARTAN POTASSIUM 50 MG TAB PO SCH (10:25)
[2021-07-04] MEDS: PANTOPRAZOLE 40 MG/10 ML VIAL INJ IV SCH (10:25)
[2021-07-04] MEDS: amLODIPine BESYLATE 5 MG TAB GT SCH (10:26)
[2021-07-04] MEDS: D5W/SOD CHLO 0.9% 1,000 ML IV SCH ×2 (15:30→22:27)
[2021-07-04 21:57] LABS: INR 1.04 (0.9-1.15); Partial Thromboplastin Time 22.8 sec (23.6-33.0)
[2021-07-04] MEDS: INSULIN LANTUS (GLARGINE) 1 /0.01ml (100units/ml) SC SCH (22:31)
[2021-07-05] VITALS (75 sets, daily range): BP systolic 94–185; BP diastolic 54–93
[2021-07-05] MEDS: ACCU-CHEK COMFORT CURVE STRIP VI SCH ×4 (00:02→18:07)
[2021-07-05] MEDS: InsuLIN REG 1unit/0.01ml Soln (100units/ml) SC SCH ×4 (00:04→18:12)
[2021-07-05] MEDS: PHENYTOIN SODIUM 50 MG/ML 2ML VIAL IV SCH ×3 (02:55→18:15)
[2021-07-05 04:01] LABS: Basophils # (auto) 0.1 10 ^3/uL (0-0.2); Eosinophils # (auto) 0.1 10 ^3/uL (0-0.8); Eosinophils % (auto) 1.7 % (0.0-7.0); Hematocrit 38.8 % (41.0-53.0); Hemoglobin 13.1 g/dL (13.5-17.5); Lymphocytes # (auto) 1.8 10 ^3/uL (0.4-5.4); Lymphocytes % (auto) 23.5 % (10.0-50.0); Mean Corpuscular Hemoglobin 28.9 pg (28.0-32.0); Mean Corpuscular Hgb Conc. 33.7 g/dL (32.0-36.0); Mean Corpuscular Volume 85.8 fL (80.0-100.0); Monocytes # (auto) 0.7 10 ^3/uL (0-1.3); Neutrophils % (auto) 64.8 % (37.0-80.0); Nucleated Red Blood Cells % 0.2 %; Red Blood Cells 4.52 10^6/uL (4.5-5.90); Red Cell Distribution Width 16.2 % (11.8-14.3); White Blood Cell 7.7 10^3/uL (4.4-10.8)
[2021-07-05 04:12] LABS: INR 1.05 (0.9-1.15); Partial Thromboplastin Time 26.2 sec (23.6-33.0)
[2021-07-05 04:14] LABS: BUN/Creatinine Ratio 16.5; Calcium 8.3 mg/dL (8.5-10.1); Potassium 3.9 mmol/L (3.5-5.1)
[2021-07-05] MEDS: D5W/SOD CHLO 0.9% 1,000 ML IV SCH ×2 (06:20→16:10)
[2021-07-05] MEDS ORDERED: LIDOCAINE 1%HCL (LOCAL ANESTH) 10 ML MDV ONE (07:30)
[2021-07-05] MEDS ORDERED: LIDOCAINE W/ EPINEPHRINE 1% 20ML VIAL ONE (07:40)
[2021-07-05] MEDS ORDERED: fentaNYL CITRATE 100 MCG/2 ML VL ONE ×2 (08:09→08:51)
[2021-07-05] MEDS ORDERED: MIDAZOLAM HCL 2MG/2ML 2ml VIAL (1mg/ml) ONE ×3 (08:09→08:38)
[2021-07-05] MEDS ORDERED: MEPERIDINE HCL (50 MG/ML) 1 ML VIAL ONE ×2 (08:09→08:39)
[2021-07-05] MEDS ORDERED: PROPOFOL 10 MG/ML 20 ML IV ONE (08:10)
[2021-07-05] MEDS ORDERED: DexAMETHasone SOD PHOS 10MG/1ML VIAL INJ ONE (08:10)
[2021-07-05] MEDS: cefTRIAXone 1GM/50ML D5W 50 ML IV SCH ×2 (08:17→08:50)
[2021-07-05] MEDS ORDERED: ROCURONIUM 10MG/ML 10ML VIAL IV ONE (09:04)
[2021-07-05] MEDS ORDERED: MORPHINE SULFATE 4 MG/ML SYR/VIAL IV PRN (10:00)
[2021-07-05] MEDS ORDERED: HYDROmorphone HCL 2 MG/ML VL/or syr IV PRN (10:00)
[2021-07-05] MEDS ORDERED: ONDANSETRON HCL 4 MG/2 ML VIAL IV PRN (10:00)
[2021-07-05] MEDS ORDERED: LABETALOL HCL 5 MG/ML 4ML SYRINGE IV PRN (10:00)
[2021-07-05] MEDS ORDERED: MIDAZOLAM HCL 2MG/2ML 2ml VIAL (1mg/ml) IV PRN (10:00)
[2021-07-05] MEDS ORDERED: ePHEDrine SULFATE 50 MG/ML AMP IV PRN (10:00)
[2021-07-05] MEDS: amLODIPine BESYLATE 5 MG TAB GT SCH (11:18)
[2021-07-05] MEDS: LOSARTAN POTASSIUM 50 MG TAB PO SCH (11:18)
[2021-07-05] MEDS: PANTOPRAZOLE 40 MG/10 ML VIAL INJ IV SCH ×2 (11:26→21:25)
[2021-07-05] MEDS: hydrALAZINE HCL 20 MG/ML VL IV PRN ×2 (11:27→21:26)
[2021-07-05] MEDS: PROPOFOL 100 ML IV SCH ×2 (13:25→22:45)
[2021-07-05] MEDS: INSULIN LANTUS (GLARGINE) 1 /0.01ml (100units/ml) SC SCH (21:35)
[2021-07-05] MEDS: SOD CHL 0.45% 1,000 ML IV SCH (21:38)
[2021-07-05] MEDS: ACETAMINOPHEN 650 MG RECT SUPP PR PRN (22:18)
[2021-07-06] VITALS (28 sets, daily range): BP systolic 123–193; BP diastolic 72–92
[2021-07-06] MEDS: ACCU-CHEK COMFORT CURVE STRIP VI SCH ×4 (00:22→18:24)
[2021-07-06] MEDS: PIPERACILLIN-TAZOB 3.375GM 100 ML IV SCH ×4 (00:29→18:24)
[2021-07-06 02:09] LABS: Urine Bacteria None Seen /hpf (None Seen)
[2021-07-06] MEDS: PHENYTOIN SODIUM 50 MG/ML 2ML VIAL IV SCH ×3 (02:54→18:27)
[2021-07-06 03:07] LABS: Urine Blood 1+ /uL (Negative); Urine Specific Gravity 1.026 (1.001-1.035)
[2021-07-06 03:48] LABS: Urine Hyaline Cast 1+ /lpf (0 - 2); Urine WBC 2 /hpf (0 - 3)
[2021-07-06] MEDS: SOD CHL 0.45% 1,000 ML IV SCH (05:47)
[2021-07-06] MEDS: InsuLIN REG 1unit/0.01ml Soln (100units/ml) SC SCH ×4 (06:00→18:32)
[2021-07-06] MEDS: PANTOPRAZOLE 40 MG/10 ML VIAL INJ IV SCH ×2 (10:15→22:09)
[2021-07-06] MEDS: LOSARTAN POTASSIUM 50 MG TAB PO SCH (10:16)
[2021-07-06] MEDS: amLODIPine BESYLATE 5 MG TAB GT SCH (10:17)
[2021-07-06] MEDS ORDERED: FUROSEMIDE 40 MG/4 ML VIAL IV ONE (11:30)
[2021-07-06] MEDS ORDERED: POTASSIUM EFFERVESENT TAB 25 MEQ PO ONE (11:30)
[2021-07-06 11:45] LABS: Calcium 8.4 mg/dL (8.5-10.1); Potassium 3.7 mmol/L (3.5-5.1)
[2021-07-06] MEDS ORDERED: INSULIN LANTUS (GLARGINE) 1 /0.01ml (100units/ml) SC ONE (11:45)
[2021-07-06] MEDS ORDERED: PHE100C PO (11:55)
[2021-07-06] MEDS ORDERED: POTA10TA32 PO (11:55)
[2021-07-06] MEDS ORDERED: PANT40TA2 PO (11:55)
[2021-07-06] MEDS ORDERED: FURO1TAB31 PO (11:55)
[2021-07-06] MEDS ORDERED: AMOX-277 PO (11:55)
[2021-07-06] MEDS ORDERED: AML5T GT (11:55)
[2021-07-06] MEDS ORDERED: LOSA-69 PO (11:55)
[2021-07-06] MEDS ORDERED: INSLANTI SC (11:55)
[2021-07-06] MEDS ORDERED: INSREGI SC (11:58)
[2021-07-06 12:36] LABS: Basophils # (auto) 0.1 10 ^3/uL (0-0.2); Eosinophils # (auto) 0.1 10 ^3/uL (0-0.8); Eosinophils % (auto) 1.4 % (0.0-7.0); Hematocrit 36.9 % (41.0-53.0); Hemoglobin 12.2 g/dL (13.5-17.5); Lymphocytes # (auto) 1.1 10 ^3/uL (0.4-5.4); Lymphocytes % (auto) 13.3 % (10.0-50.0); Mean Corpuscular Hemoglobin 28.9 pg (28.0-32.0); Mean Corpuscular Hgb Conc. 33.2 g/dL (32.0-36.0); Monocytes # (auto) 0.5 10 ^3/uL (0-1.3); Monocytes % (auto) 5.6 % (0.0-12.0); Neutrophils # (auto) 6.6 10 ^3/uL (1.6-8.6); Neutrophils % (auto) 78.7 % (37.0-80.0); Red Blood Cells 4.24 10^6/uL (4.5-5.90); Red Cell Distribution Width 16.1 % (11.8-14.3); White Blood Cell 8.4 10^3/uL (4.4-10.8)
[2021-07-06] MEDS: Glucerna 1.2 Cal 1Liter BOTTLE GT SCH (22:11)
[2021-07-06] MEDS: Pro-Stat SF 30ml Vanilla GT SCH (22:13)
[2021-07-06] MEDS: INSULIN LANTUS (GLARGINE) 1 /0.01ml (100units/ml) SC SCH (22:21)
[2021-07-06] MEDS ORDERED: LABETALOL HCL 5 MG/ML 4ML SYRINGE IV PRN (23:30)
[2021-07-07] VITALS (21 sets, daily range): BP systolic 105–172; BP diastolic 31–88
[2021-07-07] MEDS: PIPERACILLIN-TAZOB 3.375GM 100 ML IV SCH ×5 (00:05→23:38)
[2021-07-07] MEDS: ACCU-CHEK COMFORT CURVE STRIP VI SCH ×4 (00:07→17:48)
[2021-07-07] MEDS: InsuLIN REG 1unit/0.01ml Soln (100units/ml) SC SCH ×5 (00:11→23:41)
[2021-07-07] MEDS ORDERED: VANCOMYCIN 1GM/250ML 250 ML IV ONE (01:30)
[2021-07-07] MEDS ORDERED: VANCOMYCIN PER PHARMACY 0 MG IV SCH (01:30)
[2021-07-07] MEDS: PHENYTOIN SODIUM 50 MG/ML 2ML VIAL IV SCH ×3 (02:10→21:59)
[2021-07-07 05:50] LABS: BUN/Creatinine Ratio 13.6; Calcium 8.3 mg/dL (8.5-10.1); Potassium 3.5 mmol/L (3.5-5.1)
[2021-07-07] MEDS: ACETAMINOPHEN 650 MG RECT SUPP PR PRN ×2 (05:56→22:43)
[2021-07-07] MEDS ORDERED: PHENYTOIN SODIUM 50 MG/ML 2ML VIAL IV ONE (08:30)
[2021-07-07] MEDS: VANCOMYCIN 1GM/250ML 250 ML IV SCH ×3 (09:22→22:21)
[2021-07-07] MEDS: FUROSEMIDE 40 MG/4 ML VIAL IV SCH (09:23)
[2021-07-07] MEDS ORDERED: MORPHINE SULFATE INJ 2 MG/ml SYRG IV ONE (09:30)
[2021-07-07] MEDS: PANTOPRAZOLE 40 MG/10 ML VIAL INJ IV SCH ×2 (10:00→21:57)
[2021-07-07] MEDS: Pro-Stat SF 30ml Vanilla GT SCH ×2 (10:00→22:00)
[2021-07-07] MEDS: amLODIPine BESYLATE 5 MG TAB GT SCH (11:40)
[2021-07-07] MEDS: POTASSIUM EFFERVESENT TAB 25 MEQ GT SCH (11:41)
[2021-07-07] MEDS: LOSARTAN POTASSIUM 50 MG TAB PO SCH (11:41)
[2021-07-07] MEDS: Glucerna 1.2 Cal 1Liter BOTTLE GT SCH (18:55)
[2021-07-07] MEDS: INSULIN LANTUS (GLARGINE) 1 /0.01ml (100units/ml) SC SCH (22:22)
[2021-07-08] VITALS (15 sets, daily range): BP systolic 106–193; BP diastolic 53–86
[2021-07-08] MEDS: PHENYTOIN SODIUM 50 MG/ML 2ML VIAL IV SCH ×3 (03:38→20:08)
[2021-07-08 04:37] LABS: Anion Gap 11 (5-15); BUN/Creatinine Ratio 12.4; Blood Urea Nitrogen 12 mg/dL (7-18); Calcium 8.4 mg/dL (8.5-10.1); Carbon Dioxide 26 mmol/L (21-32); Chloride 97 mmol/L (98-107); GFR African American 101 mL/min; GFR Non-African American 84 mL/min; Glucose 115 mg/dL (74-106); Sodium 134 mmol/L (136-145)
[2021-07-08] MEDS: ACETAMINOPHEN 650 MG RECT SUPP PR PRN (04:52)
[2021-07-08] MEDS: PIPERACILLIN-TAZOB 3.375GM 100 ML IV SCH ×2 (05:33→13:37)
[2021-07-08] MEDS: InsuLIN REG 1unit/0.01ml Soln (100units/ml) SC SCH ×4 (05:33→23:36)
[2021-07-08] MEDS: ACCU-CHEK COMFORT CURVE STRIP VI SCH ×5 (06:17→23:34)
[2021-07-08] MEDS ORDERED: PHENYTOIN SODIUM 50 MG/ML 2ML VIAL IV ONE (09:30)
[2021-07-08] MEDS: FUROSEMIDE 40 MG/4 ML VIAL IV SCH (09:42)
[2021-07-08] MEDS: VANCOMYCIN 1GM/250ML 250 ML IV SCH ×2 (09:44→20:48)
[2021-07-08] MEDS ORDERED: PHENYTOIN DILANTIN IV ONE (09:45)
[2021-07-08] MEDS ORDERED: SODIUM CHL 0.9% IV ONE (09:45)
[2021-07-08] MEDS: POTASSIUM EFFERVESENT TAB 25 MEQ GT SCH (09:48)
[2021-07-08] MEDS: PANTOPRAZOLE 40 MG/10 ML VIAL INJ IV SCH ×2 (09:49→21:54)
[2021-07-08] MEDS: LOSARTAN POTASSIUM 50 MG TAB PO SCH (09:50)
[2021-07-08] MEDS: Pro-Stat SF 30ml Vanilla GT SCH ×2 (10:00→22:00)
[2021-07-08] MEDS: amLODIPine BESYLATE 5 MG TAB GT SCH ×2 (10:30→10:36)
[2021-07-08 10:44] LABS: Albumin 2.4 g/dL (3.4-5.0)
[2021-07-08 10:48] LABS: Bilirubin, Direct 0.2 mg/dL (0-0.2); Bilirubin, Total 0.4 mg/dL (0.2-1.0); Total Protein 6.9 g/dL (6.4-8.2)
[2021-07-08] MEDS: INSULIN LANTUS (GLARGINE) 1 /0.01ml (100units/ml) SC SCH (21:55)
[2021-07-08] MEDS: CEFEPIME 2 GM in SODIUM CHL 0.9% 50 ML IV SCH (22:55)
[2021-07-09] VITALS (20 sets, daily range): BP systolic 97–181; BP diastolic 46–91
[2021-07-09] MEDS: PHENYTOIN SODIUM 50 MG/ML 2ML VIAL IV SCH ×4 (04:52→19:00)
[2021-07-09] MEDS: ACCU-CHEK COMFORT CURVE STRIP VI SCH ×3 (05:30→18:20)
[2021-07-09] MEDS: DEXTROSE (50%) 50ML SYRG IV PRN ×2 (05:38→11:55)
[2021-07-09] MEDS: InsuLIN REG 1unit/0.01ml Soln (100units/ml) SC SCH ×3 (05:39→18:00)
[2021-07-09 05:46] LABS: Anion Gap 11 (5-15); Blood Urea Nitrogen 17 mg/dL (7-18); Calcium 8.7 mg/dL (8.5-10.1); Carbon Dioxide 29 mmol/L (21-32); Chloride 96 mmol/L (98-107); Potassium 3.5 mmol/L (3.5-5.1); Sodium 136 mmol/L (136-145)
[2021-07-09 05:49] LABS: BUN/Creatinine Ratio 12.2; GFR African American 67 mL/min; GFR Non-African American 55 mL/min
[2021-07-09 06:08] LABS: Glucose 49 mg/dL (74-106)
[2021-07-09] MEDS: CEFEPIME 2 GM in SODIUM CHL 0.9% 50 ML IV SCH ×3 (06:55→22:00)
[2021-07-09] MEDS: POTASSIUM EFFERVESENT TAB 25 MEQ GT SCH (09:50)
[2021-07-09] MEDS: FUROSEMIDE 40 MG/4 ML VIAL IV SCH (09:50)
[2021-07-09] MEDS: PANTOPRAZOLE 40 MG/10 ML VIAL INJ IV SCH ×2 (09:50→22:00)
[2021-07-09] MEDS: Pro-Stat SF 30ml Vanilla GT SCH ×2 (10:00→22:00)
[2021-07-09] MEDS: amLODIPine BESYLATE 5 MG TAB GT SCH (10:03)
[2021-07-09] MEDS: LOSARTAN POTASSIUM 50 MG TAB PO SCH (17:10)
[2021-07-09] MEDS: INSULIN LANTUS (GLARGINE) 1 /0.01ml (100units/ml) SC SCH (22:00)
[2021-07-10 01:00] VITALS: BP 150/59
[2021-07-10] MEDS: PHENYTOIN SODIUM 50 MG/ML 2ML VIAL IV SCH ×3 (02:59→18:56)
[2021-07-10 03:00] VITALS: BP 136/61
[2021-07-10 05:00] VITALS: BP 139/65
[2021-07-10 05:11] LABS: BUN/Creatinine Ratio 16.9; Calcium 8.7 mg/dL (8.5-10.1); Potassium 3.5 mmol/L (3.5-5.1)
[2021-07-10] MEDS: ACCU-CHEK COMFORT CURVE STRIP VI SCH ×4 (06:00→18:47)
[2021-07-10] MEDS: InsuLIN REG 1unit/0.01ml Soln (100units/ml) SC SCH ×4 (06:09→18:48)
[2021-07-10] MEDS: CEFEPIME 2 GM in SODIUM CHL 0.9% 50 ML IV SCH ×2 (06:10→18:56)
[2021-07-10 07:30] VITALS: BP 150/71
[2021-07-10] MEDS: LOSARTAN POTASSIUM 50 MG TAB PO SCH (09:34)
[2021-07-10] MEDS: POTASSIUM EFFERVESENT TAB 25 MEQ GT SCH (09:34)
[2021-07-10] MEDS: amLODIPine BESYLATE 5 MG TAB GT SCH (09:35)
[2021-07-10] MEDS: PANTOPRAZOLE 40 MG/10 ML VIAL INJ IV SCH (09:35)
[2021-07-10] MEDS: FUROSEMIDE 40 MG/4 ML VIAL IV SCH (09:35)
[2021-07-10] MEDS: Pro-Stat SF 30ml Vanilla GT SCH ×2 (10:00→16:30)
[2021-07-10] MEDS ORDERED: CEFEPIME 2 GM in SODIUM CHL 0.9% 50 ML IV SCH (10:00)
[2021-07-10 12:00] VITALS: BP 159/65
[2021-07-10] MEDS ORDERED: SODIUM CHLORIDE 0.9% 250 ML IV ONE (13:15)
[2021-07-10] MEDS: LINEZOLID 600MG/300ML 300 ML IV SCH (16:31)
[2021-07-10 17:00] VITALS: BP 141/63
[2021-07-11] VITALS (7 sets, daily range): BP systolic 135–152; BP diastolic 50–65
[2021-07-11] MEDS: Pro-Stat SF 30ml Vanilla GT SCH ×3 (00:17→23:01)
[2021-07-11] MEDS: PANTOPRAZOLE 40 MG/10 ML VIAL INJ IV SCH ×3 (00:17→23:02)
[2021-07-11] MEDS: ACCU-CHEK COMFORT CURVE STRIP VI SCH ×5 (00:18→23:13)
[2021-07-11] MEDS: InsuLIN REG 1unit/0.01ml Soln (100units/ml) SC SCH ×5 (00:19→23:30)
[2021-07-11] MEDS: INSULIN LANTUS (GLARGINE) 1 /0.01ml (100units/ml) SC SCH ×2 (00:19→23:03)
[2021-07-11] MEDS: LINEZOLID 600MG/300ML 300 ML IV SCH ×2 (02:12→14:38)
[2021-07-11] MEDS: PHENYTOIN SODIUM 50 MG/ML 2ML VIAL IV SCH ×3 (03:35→19:11)
[2021-07-11 05:48] LABS: Basophils # (auto) 0 10 ^3/uL (0-0.2); Basophils % (auto) 0.7 % (0.0-2.0); Eosinophils # (auto) 0.2 10 ^3/uL (0-0.8); Eosinophils % (auto) 2.4 % (0.0-7.0); Hematocrit 37.4 % (41.0-53.0); Hemoglobin 12.8 g/dL (13.5-17.5); Lymphocytes # (auto) 2.1 10 ^3/uL (0.4-5.4); Lymphocytes % (auto) 29.5 % (10.0-50.0); Mean Corpuscular Hgb Conc. 34.2 g/dL (32.0-36.0); Mean Corpuscular Volume 84.9 fL (80.0-100.0); Monocytes # (auto) 0.9 10 ^3/uL (0-1.3); Monocytes % (auto) 12.4 % (0.0-12.0); Neutrophils # (auto) 3.9 10 ^3/uL (1.6-8.6); Nucleated Red Blood Cells % 0.1 %; Red Cell Distribution Width 15.6 % (11.8-14.3); White Blood Cell 7.1 10^3/uL (4.4-10.8)
[2021-07-11] MEDS: CEFEPIME 2 GM in SODIUM CHL 0.9% 50 ML IV SCH ×2 (08:06→17:45)
[2021-07-11] MEDS: POTASSIUM EFFERVESENT TAB 25 MEQ GT SCH (09:44)
[2021-07-11] MEDS: FUROSEMIDE 40 MG/4 ML VIAL IV SCH (09:45)
[2021-07-11] MEDS: amLODIPine BESYLATE 5 MG TAB GT SCH (09:45)
[2021-07-11] MEDS: LOSARTAN POTASSIUM 50 MG TAB PO SCH (09:46)
[2021-07-11 10:04] LABS: Calcium 8.7 mg/dL (8.5-10.1)
[2021-07-11 10:08] LABS: BUN/Creatinine Ratio 18.6
[2021-07-11] MEDS: APIXABAN 5 MG TAB PO SCH (23:01)
[2021-07-12] MEDS: PHENYTOIN SODIUM 50 MG/ML 2ML VIAL IV SCH ×2 (02:35→10:33)
[2021-07-12] MEDS: LINEZOLID 600MG/300ML 300 ML IV SCH ×2 (02:36→15:41)
[2021-07-12] MEDS: ACCU-CHEK COMFORT CURVE STRIP VI SCH ×3 (07:46→17:57)
[2021-07-12] MEDS: CEFEPIME 2 GM in SODIUM CHL 0.9% 50 ML IV SCH ×2 (07:46→17:57)
[2021-07-12] MEDS: InsuLIN REG 1unit/0.01ml Soln (100units/ml) SC SCH ×3 (07:47→17:58)
[2021-07-12 08:00] VITALS: BP 156/56
[2021-07-12] MEDS: PANTOPRAZOLE 40 MG/10 ML VIAL INJ IV SCH (10:09)
[2021-07-12] MEDS: LOSARTAN POTASSIUM 50 MG TAB PO SCH (10:09)
[2021-07-12] MEDS: FUROSEMIDE 40 MG/4 ML VIAL IV SCH (10:09)
[2021-07-12] MEDS: amLODIPine BESYLATE 5 MG TAB GT SCH (10:10)
[2021-07-12] MEDS: APIXABAN 5 MG TAB PO SCH (10:10)
[2021-07-12] MEDS: Pro-Stat SF 30ml Vanilla GT SCH (10:11)
[2021-07-12] MEDS: POTASSIUM EFFERVESENT TAB 25 MEQ GT SCH (10:11)
[2021-07-12] MEDS ORDERED: MORPHINE SULFATE INJ 2 MG/ml SYRG IV PRN (13:00)
[2021-07-19] MEDS ORDERED: APIXABAN 5 MG TAB PO SCH (10:00)
== END 2021-07-12 20:00 | DRG 4 ==
LOC: EDBD 22:23 → ER 22:26 → TELE 06-18 06:03 → ICU WEST 06-18 08:15 → DOU IN ICU 07-09 00:37
PROVIDERS: ADMIT Nurse Practitioner; ATTEND Hospitalist
PROC: 5A1955Z Respiratory Ventilation, Greater than 96 Consecutive Hours (ICD-10-PCS; 2021-06-17)
PROC: 0BH17EZ Insertion of Endotracheal Airway into Trachea, Via Natural or Artificial Opening (ICD-10-PCS; 2021-06-17)
PROC: 05HB33Z Insertion of Infusion Device into Right Basilic Vein, Percutaneous Approach (ICD-10-PCS; 2021-06-18)
PROC: B54MZZA Ultrasonography of Right Upper Extremity Veins, Guidance (ICD-10-PCS; 2021-06-18)
PROC: 05HA33Z Insertion of Infusion Device into Left Brachial Vein, Percutaneous Approach (ICD-10-PCS; 2021-06-26)
PROC: B54NZZA Ultrasonography of Left Upper Extremity Veins, Guidance (ICD-10-PCS; 2021-06-26)
PROC: 0DH63UZ Insertion of Feeding Device into Stomach, Percutaneous Approach (ICD-10-PCS; 2021-07-05)
PROC: 0B110F4 Bypass Trachea to Cutaneous with Tracheostomy Device, Open Approach (ICD-10-PCS; principal; 2021-07-05 08:28)
DX: A41.9 Sepsis, unspecified organism (principal); J96.01 Acute respiratory failure with hypoxia; J69.0 Pneumonitis due to inhalation of food and vomit; G92.8 Other toxic encephalopathy; G93.1 Anoxic brain damage, not elsewhere classified; J98.11 Atelectasis; N17.9 Acute kidney failure, unspecified; E87.0 Hyperosmolality and hypernatremia; E87.1 Hypo-osmolality and hyponatremia; Z99.11 Dependence on respirator [ventilator] status; N39.0 Urinary tract infection, site not specified; F19.20 Other psychoactive substance dependence, uncomplicated; J95.851 Ventilator associated pneumonia; Z20.822 Contact with and (suspected) exposure to COVID-19; I10 Essential (primary) hypertension; E11.649 Type 2 diabetes mellitus with hypoglycemia without coma; G40.909 Epilepsy, unspecified, not intractable, without status epilepticus; E66.9 Obesity, unspecified; Z68.31 Body mass index [BMI] 31.0-31.9, adult; K29.70 Gastritis, unspecified, without bleeding; R13.10 Dysphagia, unspecified; Z79.01 Long term (current) use of anticoagulants; Z87.01 Personal history of pneumonia (recurrent); Z79.4 Long term (current) use of insulin; Z82.49 Family history of ischemic heart disease and other diseases of the circulatory system; Z83.3 Family history of diabetes mellitus; F09 Unspecified mental disorder due to known physiological condition
CPT/HCPCS: 31500; 36415; 36600; 43239; 43246; 51702; 70450; 71045; 71260; 72125; 74177; 80048; 80053; 80076; 80185; 80202; 80307; 81001; 82040; 82805; 82947; 82962; 83605; 83615; 84484; 85025; 85610; 85730; 86703; 86850; 86900; 86901; 87040; 87070; 87077; 87081; 87086; 87186; 87205; 93005; 93306; 93971; 94002; 94003; 94640; 94668; 95819; 96365; 96366; 96367; 96368; 99152; 99291; A4605; A4618; C9113; G0378; J0330; J0696; J1100; J1815; J2001; J2250; J2405; J2543; J2704; J3490; J7042